=== PATIENT | female | born 1970 | race Caucasian/White ===

== ENCOUNTER 2021-01-17 15:54 | Emergency (ER) | payer OTHER ==
[~2021-01-17 15:54] MED LIST: OMNICEF 300 MG300 MG PO; TAMIFLU75 MG PO; TESSALON PERLE100 MG PO; VENTOLIN HFA 66.7 GM INH; ZITHROMAX500 MG PO
[2021-01-17] MEDS ORDERED: OMNICEF 300 MG300 MG PO (19:01)
[2021-01-17] MEDS ORDERED: PYRIDIUM200 MG PO (19:01)
[2021-01-17] MEDS ORDERED: ZOFRAN4 MG PO (19:01)
== END 2021-01-17 19:25 | disposition home or self-care (01) ==
LOC: ER1 15:54
DX: N39.0 Urinary tract infection, site not specified (principal); I10 Essential (primary) hypertension; F17.210 Nicotine dependence, cigarettes, uncomplicated; Z90.49 Acquired absence of other specified parts of digestive tract; Z90.710 Acquired absence of both cervix and uterus; Z88.2 Allergy status to sulfonamides; Z88.5 Allergy status to narcotic agent; Z88.8 Allergy status to other drugs, medicaments and biological substances
CPT/HCPCS: 81001; 87086; 96372; 99283; J0696

== ENCOUNTER 2021-02-14 22:05 | Emergency (ER) | payer OTHER ==
[~2021-02-14 22:05] MED LIST changes: +PYRIDIUM200 MG PO; +ZOFRAN4 MG PO
[2021-02-15] MEDS ORDERED: PERCOCET 5/325 T1 EA PO (00:02)
== END 2021-02-15 00:30 | disposition home or self-care (01) ==
LOC: ER1 22:05
DX: S62.326A Displaced fracture of shaft of fifth metacarpal bone, right hand, initial encounter for closed fracture (principal); Z90.710 Acquired absence of both cervix and uterus; Z88.5 Allergy status to narcotic agent; Z88.2 Allergy status to sulfonamides; F17.210 Nicotine dependence, cigarettes, uncomplicated; W22.8XXA Striking against or struck by other objects, initial encounter
CPT/HCPCS: 29105; 73110; 73130; 99283

== ENCOUNTER 2021-02-25 20:45 | Emergency (ER) | payer OTHER ==
[~2021-02-25 20:45] MED LIST changes: +PERCOCET 5/325 T1 EA PO
[2021-02-26] MEDS ORDERED: PREDNISONE 20 M20 MG PO (00:13)
[2021-02-26] MEDS ORDERED: DOXYCYCLINE HY100 M2 PO (00:13)
[2021-02-26] MEDS ORDERED: ZYRTEC10 MG PO (00:13)
[2021-02-26] MEDS ORDERED: VALTREX1000 MG PO (00:13)
[2021-02-27 20:11] LABS: CHLAMYDIA TRACHOMATIS, NAA Negative (Negative); NEISSERIA GONORRHOEAE, NAA Negative (Negative)
== END 2021-02-26 01:10 | disposition home or self-care (01) ==
LOC: ER1 20:45
PROVIDERS: Physician Assistant
DX: N76.0 Acute vaginitis (principal); T78.40XA Allergy, unspecified, initial encounter; L73.9 Follicular disorder, unspecified; S62.306A Unspecified fracture of fifth metacarpal bone, right hand, initial encounter for closed fracture; Z90.49 Acquired absence of other specified parts of digestive tract; Z90.710 Acquired absence of both cervix and uterus; F17.210 Nicotine dependence, cigarettes, uncomplicated; Z88.2 Allergy status to sulfonamides; Z88.5 Allergy status to narcotic agent; Z88.8 Allergy status to other drugs, medicaments and biological substances; W22.8XXA Striking against or struck by other objects, initial encounter
CPT/HCPCS: 81001; 86694; 87086; 87210; 87252; 96365; 96375; 99283; J2930

== ENCOUNTER 2021-03-26 16:52 | Emergency (ER) | payer OTHER ==
[~2021-03-26 16:52] MED LIST changes: +DOXYCYCLINE HY100 M2 PO; +PREDNISONE 20 M20 MG PO; +VALTREX1000 MG PO; +ZYRTEC10 MG PO
== END 2021-03-26 17:30 | disposition left against medical advice (07) ==
LOC: ER1 16:52
DX: Z53.21 Procedure and treatment not carried out due to patient leaving prior to being seen by health care provider (principal)

== ENCOUNTER 2021-09-29 20:38 | Emergency (ER) | payer OTHER ==
[~2021-09-29 20:38] MED LIST changes: +VISTARIL 50 MG50 MG PO; +ZOFRAN ODT 4 MG4 MG PO
[2021-09-30] MEDS ORDERED: MEDROL DOSEPAK 24 MG PO (00:14)
[2021-09-30] MEDS ORDERED: BENADRYL25 MG PO (00:14)
== END 2021-09-30 00:39 | disposition home or self-care (01) ==
LOC: ER1 20:38
DX: T78.40XA Allergy, unspecified, initial encounter (principal); F17.210 Nicotine dependence, cigarettes, uncomplicated; Z88.5 Allergy status to narcotic agent; Z88.2 Allergy status to sulfonamides; Z88.8 Allergy status to other drugs, medicaments and biological substances
CPT/HCPCS: 96372; 99282; J1100

== ENCOUNTER → 2021-09-30 | Outpatient (CLI) | payer OTHER ==
[~2021-09-30] MED LIST changes: +BENADRYL25 MG PO; +MEDROL DOSEPAK 24 MG PO
== END ==
LOC: EXRD 16:00
DX: R59.0 Localized enlarged lymph nodes (principal); E04.2 Nontoxic multinodular goiter
CPT/HCPCS: 76536

== ENCOUNTER 2021-12-15 15:07 | Emergency (ER) | payer OTHER ==
[2021-12-15 16:27] LABS: HEMOGLOBIN 12.7 gm/dl (12.3-15.3); RED BLOOD COUNT 4.13 M/UL (4.00-5.10); WHITE BLOOD COUNT 7.8 K/UL (4.5-11.0)
[2021-12-15 16:47] LABS: BUN/CREATININE RATIO 13 (0-10)
[2021-12-15 19:37] LABS: BORDETELLA PARAPERTUSSIS Not Detected (Not Detectd); BORDETELLA PERTUSSIS Not Detected (Not Detectd); CHLAMYDIA PNEUMONIAE Not Detected (Not Detectd); CORONAVIRUS HKU1 Not Detected (Not Detectd); CORONAVIRUS NL63 Not Detected (Not Detectd); CORONAVIRUS OC43 Not Detected (Not Detectd); CORONOAVIRUS 229E Not Detected (Not Detectd); HUMAN METAPNEUMOVIRUS Not Detected (Not Detectd); HUMAN RHINOVIRUS/ENTEROVIRUS Not Detected (Not Detectd); INFLUENZA A Not Detected (Not Detectd); INFLUENZA B Not Detected (Not Detectd); MYCOPLASMA PNEUMONIAE Not Detected (Not Detectd); PARAINFLUENZA VIRUS 1 Not Detected (Not Detectd); PARAINFLUENZA VIRUS 2 Not Detected (Not Detectd); PARAINFLUENZA VIRUS 3 Not Detected (Not Detectd); PARAINFLUENZA VIRUS 4 Not Detected (Not Detectd); RESPIRATORY SYNCYTIAL VIRUS Not Detected (Not Detectd)
[2021-12-15 20:33] LABS: SARS-CoV-2 NOT DETECTED (Not Detectd)
[2021-12-15] MEDS ORDERED: OMNICEF 300 MG300 MG PO (21:35)
[2021-12-15] MEDS ORDERED: PYRIDIUM200 MG PO (21:35)
== END 2021-12-15 21:45 | disposition home or self-care (01) ==
LOC: ER1 15:07
PROVIDERS: Physician Assistant Medical; Student in an Organized Health Care Education/Training Program
DX: R30.0 Dysuria (principal); R11.0 Nausea; R06.00 Dyspnea, unspecified; R10.813 Right lower quadrant abdominal tenderness; J44.9 Chronic obstructive pulmonary disease, unspecified; Z90.49 Acquired absence of other specified parts of digestive tract; Z90.710 Acquired absence of both cervix and uterus; Z20.822 Contact with and (suspected) exposure to COVID-19
CPT/HCPCS: 71045; 80053; 81001; 85025; 87633; 99283

== ENCOUNTER 2022-03-06 19:37 | Emergency (ER) | payer OTHER ==
[2022-03-06 21:19] LABS: HEMOGLOBIN 14.2 gm/dl (12.3-15.3); RED BLOOD COUNT 4.52 M/UL (4.00-5.10); WHITE BLOOD COUNT 7.9 K/UL (4.5-11.0)
[2022-03-06 22:02] LABS: BUN/CREATININE RATIO 18 (0-10)
[2022-03-07] MEDS ORDERED: MACROBID 100 M100 M1 PO (01:55)
== END 2022-03-07 02:10 | disposition home or self-care (01) ==
LOC: ER1 19:37
PROVIDERS: Physician Assistant
DX: N39.0 Urinary tract infection, site not specified (principal); F19.10 Other psychoactive substance abuse, uncomplicated; R06.00 Dyspnea, unspecified; J44.9 Chronic obstructive pulmonary disease, unspecified; M06.9 Rheumatoid arthritis, unspecified; F17.200 Nicotine dependence, unspecified, uncomplicated; Z90.49 Acquired absence of other specified parts of digestive tract; Z90.710 Acquired absence of both cervix and uterus; Z88.2 Allergy status to sulfonamides; Z88.5 Allergy status to narcotic agent; Z88.8 Allergy status to other drugs, medicaments and biological substances
CPT/HCPCS: 71045; 80053; 80307; 81001; 82550; 82553; 83690; 84484; 85025; 85379; 87086; 93005; 96360; 99284; Q9967